=== PATIENT | female | born 1960 | race Two or more races ===

== ENCOUNTER 2025-02-18 15:30 | Outpatient (AMB) | payer OTHER, SELFPAY ==
--- NOTE | 2025-02-18 15:40 | A.OFFVIS_ITS ---
Intake Visit Reasons: 6 months migranes Accompanied by: Family/Other Allergies aspirin (ASPIRIN) Allergy (Unknown, Unverified 02/18/25 15:55) KIDNEY DISEASE ibuprofen (From MOTRIN) Allergy (Unknown, Unverified 02/18/25 15:55) KIDNEY DISEASE Medication List - Last Reconciled 02/18/25 by Clemencia Espinal CNP famotidine 20 mg PO BID PRN insulin glargine (Lantus Solostar U-100 Insulin) units subcut metformin ER 1,000 mg PO DAILY metoclopramide HCl 5 mg PO QID nortriptyline 100 mg PO BEDTIME ondansetron HCl 4 mg PO Q8H PRN simvastatin 40 mg PO BEDTIME topiramate 50 mg PO DAILY HPI Comments Details: 64-year-old woman with DM, GERD, hyperemesis syndrome treated with nortriptyline, and migraine headaches. She was doing okay. Headaches were about the same. She had few occasional headaches with light sensitivity. Sleep was still not so good. She was having some more tremors to hands, and occasionally to head and legs which were bothersome. No difficulty eating, drinking, or swallowing. [facility] Medical History (Updated 02/18/25 @ 15:49 by Clemencia Espinal CNP) Familial tremor Migraine Review of Systems Const Denies chills, Denies daytime sleepiness, Reports difficulty sleeping, Denies fatigue, Denies fever(s), Denies frequent falls, Reports headache(s), Denies increased appetite, Denies poor appetite, Denies snoring, Denies weakness, Denies weight gain and Denies weight loss Eyes Denies loss of vision ENT Denies vertigo, Denies dizziness and Reports headache(s) Card Denies chest pain at rest, Denies chest pain with activity, Denies syncope, Denies leg edema and Denies palpitations Resp Denies snoring GI Denies constipation, Denies heartburn, Denies diarrhea and Denies nausea Denies urinary frequency, Denies urinary incontinence and Denies urinary urgency Musc Denies abnormal gait, Denies numbness and Denies tingling Skin/Breast Denies dry skin and Denies rash Neuro Denies abnormal gait, Denies vertigo, Denies dizziness, Denies syncope, Denies frequent falls, Reports headache(s), Denies lack of coordination, Denies loss of vision, Denies memory loss, Denies numbness, Denies restless legs, Denies seizure-like activity, Denies tingling, Denies paresthesias, Reports tremor(s) and Denies weakness Psych Denies anxiety, Denies depression, Denies auditory hallucinations, Denies memory loss, Denies visual hallucinations and Denies suicidal ideation Endo Denies fatigue and Denies palpitations Physical Exam Const Other: General Appearance:? normal, in no acute distress. Skin:? no rashes, no significant birthmarks. Heart:? S1, S2 normal, no murmurs. Lungs:? clear anteriorly and posteriorly. Extremities:? no edema. Psych:? alert, oriented, cognitive function intact, cooperative with exam. Neuro Other: Mental Status:?Normal attention, orientation, memory and affect.? Cranial Nerves:?Pupils are equal, round and reactive to light. External occular muscles are intact. Visual de guzman are full. Face is symmetrical. Facial sensations are normal. Tongue is midline. Palate elevates symmetrically. Shoulder shrugging is normal. Hearing to bedside conversation is normal. Motor Examination:?DTRs absent. Sensory Exam:?....? Coordination:?No ataxia,?no titubation.? Gait Exam: Within normal limits. Cerebellar Signs:?[id number] with tremor. Extrapyramidal System:?No tremor, rigidity with normal facial expressions.? Pronator Drift:?Not present.? Involuntary Movements:?Moderate bilateral hand postural tremor. Mild head tremor. Speech:?Normal.? Results Reviewed Results Reviewed: CT brain WO at [place] 05/2022: Mild MVD Assessment & Plan Assessment & Plan (1) Chronic migraine w/o aura w/o status migrainosus, not intractable: Code(s): G43.709 - Chronic migraine without aura, not intractable, without status migrainosus Category: Medical Plan: Continue topiramate 50mg 1 tablet daily. (2) Migraine without aura: Code(s): G43.009 - Migraine without aura, not intractable, without status migrainosus Category: Medical Qualifiers: Status migrainosus presence: without status migrainosus Intractability: not intractable Qualified Code(s): G43.009 - Migraine without aura, not intractable, without status migrainosus (3) Familial tremor: Code(s): G25.0 - Essential tremor Category: Medical Plan: She was interested in trying medication. Start propranolol 10mg 1 tablet daily x1 week, then 1 tablet twice a day, use/side effects reviewed. Follow up in 2 months or sooner as needed. Plan Meds tried: verapamil Medications: New propranolol 10 mg orally 1 tablet daily x1 week then 1 tablet twice a day; 60 tabs 2RF 30 days topiramate 50 mg PO DAILY 90 tabs 1RF 90 days Coding Level of Care Code Est Pt Level 4 (84856) Diagnoses Chronic migraine w/o aura w/o status migrainosus, not intractable G43.709 Migraine without aura and without status migrainosus, not intractable G43.009 Status migrainosus presence: without status migrainosus Intractability: not intractable Familial tremor G25.0
--- OUTSIDE RECORDS SUMMARY | 2025-02-18 22:15 | XMS_ITS ---
Author Name [facility] Organization Unknown Care Team Organization Name Specialty Phone Email Start Date End Da te [facility] 01/18/2022
--- OUTSIDE RECORDS SUMMARY | 2025-02-18 22:15 | XMS_ITS | Patient Health Record ---
[facility] Address [address] [place] [address] Care Team Providers Care Associate Professor Of Literacy Name Role Phone Noreen Dunlap M.D. Primary Care Provider Un available Casey Felder Jr Unavailable [phone] Allergies Allergen (clinical drug ingredient) Drug/Non Drug Allergy documented on EMR Reaction Allergy Type Onset Date Status IV Contrast (uncoded) Unknown Allergy Active aspirin Aspirin Unknown Drug Allergy Active ibuprofen Ibuprofen Unknown Drug Allergy Active Reason For Referral No Information Medications Medication SIG (Take, Route, Frequency, Duration) Notes Start Date End Date Status Promethazine HCl 25mg Active Clobetasol 17 Propionate 5% Active Lidocaine 5% Active Omeprazole 20mg Acti ve Atenolol 25mg Active Simvastatin 40mg Act akbar Ranitidine HCl 300mg Active Fluoxetine 10mg Acti ve tiZANidine HCl 2mg A ctive Librax Active Problems Problem Type SNOMED Code ICD Code Onset Dates Problem Status W/U Status Risk Notes Problem Nausea and vomiting (52427845) Nausea with vomiting (787.01) Active confirmed Plan Of Treatment No Information Insurance Providers Payer Name Payer Address Payer Phone Subscriber Number Group Number Insured Name Patient Relationship to Insured Coverage Start Date Coverage End Date [employer]ICA[employer] OF [employer] [facility] [facility] [address] [place] [phone] [id number] LEANDRA MENDOZA Self - patient is the insured
--- OUTSIDE RECORDS SUMMARY | 2025-02-18 22:16 | XMS_ITS | Clinical Summary ---
Author Organization 175 [facility] Address [address] [place] [address] Phone Care Team Providers Care General Warehouse Worker Name Role Phone Tiffany Grant MD Primary Care Provider [phone] Allergies Active Allergy Reactions Criticality Noted Date Comments Aspirin Rash 11/07/2013 Has one kidney Ibuprofen 11/07/2013 Has one kidney Medications secukinumab (Cosentyx Pen, 2 Pens,) 150 mg/mL pen injector Inject 2 mL (300 mg total) under the skin. 12/24/19 20 Active topiramate (TOPAMAX) 50 mg tablet Take 1 tablet (50 mg total) by mouth 2 (two) times a day. 02/29/20 23 Active diclofenac (VOLTAREN) 1 % topical gel Apply 4 g topically 2 (two) times a day. 10/25/19 24 Active flash glucose sensor (FreeStyle Emely 2 Sensor) kit Change sensor every 14 days. Box = Kit = EA 2 each 01/29/20 24 Active pantoprazole (PROTONIX) 40 mg EC tablet Take 1 tablet (40 mg total) by mouth 2 (two) times a day. Before meals. Take on an empty stomach. Wait 30 mins to eat 180 each 1 09/10/19 25 025 Active metFORMIN XR (GLUCOPHAGE-XR) 500 mg 24 hr tabletIndication s:Type 2 diabetes mellitus with other diabetic kidney complication (CMS/HCC V24, CMS/HCC V28) Do not crush, chew, or split.TAKE 2 TABLETS ONCE DAILY WITH FOOD 180 tablet 1 10/16/19 25 Active blood-glucose sensor (FreeStyle Emely 3 Plus Sensor) deviceIndication s:Type 2 diabetes mellitus with other diabetic kidney complication ([facility] V24, [facility] V28) Change sensor every 15 days 2 each 10/16/19 25 Active blood-glucose,re ceiver,cont (FreeStyle Emely 3 [place]) miscIndications: Type 2 diabetes mellitus with other diabetic kidney complication ([facility] V24, [facility] V28) Use daily to check bs 1 each 10/16/19 25 Active Felecia 2nd Gen Pen Needle 32 gauge x /32 needleIndication s:Type 2 diabetes mellitus with other diabetic kidney complication ([facility] V24, [facility] V28) USE 4 TIMES DAILY WITH INSULIN PEN STRENGTH: 32G X 4 MM 200 each 5 12/18/19 25 Active simvastatin (ZOCOR) 40 mg tablet Take 1 tablet (40 mg total) by mouth at bedtime. 90 tablet 1 12/19/19 25 Active Lantus Solostar U-100 Insulin 100 unit/mL (3 mL) injection penIndications:T ype 2 diabetes mellitus with stage 3 chronic kidney disease, with long-term current use of insulin, unspecified whether stage 3a or 3b CKD ([facility] V24, [facility] V28) INJECT 10 UNITS INTO THE SKIN in the morning 15 mL 3 01/09/20 25 Active insulin lispro (HumaLOG KwikPen) 100 unit/mL injection penIndications:T ype 2 diabetes mellitus with stage 3 chronic kidney disease, with long-term current use of insulin, unspecified whether stage 3a or 3b CKD ([facility] V24, [facility] V28) INJECT 4 UNITS 2 TIMES DAILY. (BEFORE MEALS). 45 mL 5 01/09/20 25 Active blood sugar diagnostic (FreeStyle Lite Strips) test strip USE TO TEST BLOOD SUGAR THREE TIMES DAILY 100 each 01/09/20 25 Active lancets lancets CHECK BLOOD SUGAR 3 TIMES A DAY OR DIRECTED. Freestyle lite 100 each 01/10/20 25 Active nortriptyline (PAMELOR) 50 mg capsule Take 2 capsules (100 mg total) by mouth at bedtime. 180 capsule 01/28/20 25 Active metoclopramide (REGLAN) 5 mg tablet Take 1 tablet (5 mg total) by mouth 4 (four) times a day. 360 each 3 02/04/20 25 026 Active ondansetron (ZOFRAN) 4 mg tablet TOME 1 TABLETA POR VIA ORAL CADA 8 HORAS CUANDO SEA NECESARIO PARA LAS NAUSEAS Y VOMITOS FOR UP TO 14 DAYS 42 tablet 02/04/20 Active nortriptyline (PAMELOR) 50 mg capsule Take 2 capsules (100 mg total) by mouth at bedtime. 180 capsule 10/22/19 25 025 Discontinued metoclopramide (REGLAN) 5 mg tablet TAKE 1 TABLET BY MOUTH 4 TIMES A DAY 120 tablet 12/10/19 25 025 Discontinued ondansetron (ZOFRAN) 4 mg tablet Take 1 tablet (4 mg total) by mouth every 8 (eight) hours if needed for nausea or vomiting for up to 14 days. 42 each 12/17/19 025 Discontinued Active Problems Problem Noted Date Diagnosed Date Type 2 diabetes mellitus with renal manifestatio ns 01/10/2024 02/08/2021 History of colon polyps 01/10/2024 Overview (01/10/2024): Small tubular adenoma 01/11/13 Bingham's esophagus 04/28/2021 Overview (03/21/2024): Short segment of Bingham's esophagus without dysplasia seen at upper endoscopy on 04/21/2021. Recommend repeat EGD in 5 years. 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 Hyperlipidemia 05/11/2017 Migraine 05/11/2017 Osteoarthritis of foot 05/11/2017 Overview (03/21/2024): R - foot Vitamin D deficiency 05/11/2017 Diverticulosis of colon 04/20/2017 Overview (03/21/2024): Seen at colonoscopy 04/13/2017 HH (hiatus hernia) 04/20/2017 Overview (03/21/2024): Seen at upper endoscopy 04/13/2017 Psoriasis 04/20/2017 Overview (03/21/2024): Humira -~ 2008 - 2016 Cosentyx since 2016 Cyclic vomiting syndrome 02/22/2017 Gastroesophageal reflux disease 02/22/2017 Anxiety 11/07/2013 Depression 11/07/2013 Overview (03/21/2024): F/u [facility] psych Renal calculus or stone 11/07/2013 Family history of uterine cancer Overview (03/21/2024): Pt lin negative Resolved Problems Problem Noted Date Diagnosed Date Resolved Date PRICE (acute kidney injury) 05/11/2024 Encounters Date Type Department Care Team Description 01/08/2025 3:45 PM EDT Office Visit Endocrinology [address] [phone] Vianey Davis PA Type 2 diabetes mellitus with stage 3 chronic kidney disease, with long-term current use of insulin, unspecified whether stage 3a or 3b CKD (CMS/HCC V24, CMS/HCC V28) (Primary Dx); Other hyperlipidemia; Microalbuminuria 01/07/2025 Telephone Pulmonology - [address] [place] [address] Veronique Allen MA 01/07/2025 Results Follow-Up Pulmonology - [place] [facility] [address] [place] [phone] Kriss Alfonso MD 01/02/2025 3:45 PM EDT Office Visit Pulmonology [facility] [address] [facility] [address] [place] [phone] Kriss Alfonso MD WILLIE (obstructive sleep apnea) (Primary Dx) 12/11/2024 Results Follow-Up Pulmonology [facility] [address] [facility] [address] [place] [phone] Kriss Alfonso MD from Last 3 Months Immunizations Immunization Administration Dates Next Due Influenza Quadravalent, MDCK , 0.5ml, preservative free (Flucelvax) 6mo and older 03/20/2023,11/18/2021,02/08/2021 Influenza Quadravalent, MDCK , 0.5ml, with preservative (Flucelvax) 6mo and older 12/22/2017 Influenza trivalent, MDCK, 0 .5mL, preservative free (Flucelvax) 6mo and older 03/25/2024 Influenza trivalent, with pr eservative (Fluzone; Afluria) 6mo and older 12/30/2019,12/15/2016,01/01/2014 Pfizer (ages 12 & older) Bivalent, COVID-19 06/2021 Pneumococcal conjugate 13 va lent (Prevnar 13, PCV13) 2mo and older 02/06/2013 Pneumococcal conjugate 20 va lent (Prevnar 20, PCV 20) 2mo and older 09/24/2024 Pneumococcal polysaccharide 23 valent (Pneumovax 23) 2yo and older 04/20/2017 Tdap Tetanus diptheria acell ular pertussis (Boostrix; Adacel) 7yo and older 05/22/2015 Zoster Live 09/29/2021 Zoster recombinant (Shingrix ) 19yo and older 09/29/2021,02/22/2020 Surgical History Surgery Date Site/Laterality Comments OVARIAN CYST REMOVAL Right CHOLECYSTECTOMY 2010 APPENDECTOMY 2002 ESOPHAGOGASTRODUODENOSCOPY 04/13/2017 hiatus hernia (small); normal duodenal biopsies COLONOSCOPY 04/13/2017 tics; Normal random colonnic biopsies; repeat in 5 yrs OTHER SURGICAL HISTORY 06/21/2011 Right Parotid Mass biopsy - benign COLONOSCOPY 01/11/2013 MG - benign adenoma; repeat colonoscopy in 3 years. ESOPHAGOGASTRODUODENOSCOPY 01/11/2013 MG - normal, duodenal bx. COLONOSCOPY 09/05/2019 negative; random colonic bx negative ESOPHAGOGASTRODUODENOSCOPY 04/21/2021 Short segment of Bingham's esophagus without dysplasia seen. Recommend repeat EGD in 5 years. SCREENING MAMMOGRAM 06/05/2023 Bilateral Medical History Medical History Date Comments Cyclic vomiting syndrome 02/22/2017 Gastroesophageal reflux disease 02/22/2017 Hx of colonic polyp 02/22/2017 Hyperlipidemia 05/11/2017 Absence of kidney 05/11/2017 : Right Osteoarthritis 05/11/2017 shoulder, foot Migraine 05/11/2017 Vitamin D deficiency 05/11/2017 Psoriasis 04/20/2017 Kidney stones 11/07/2013 Hypertension 11/07/2013 HH (hiatus hernia) 04/20/2017 Seen at upper endoscopy 04/13/2017 Diverticulosis of colon 04/20/2017 Seen at colonoscopy 04/13/2017 Depression 11/07/2013 Anxiety 11/07/2013 [facility] Irritable bowel syndrome with diarrhea 9 Family history of uterine cancer 02/17/2020 Pt lin negative Microalbuminuria 10/07/2020 Bingham's esophagus 04/28/2021 : Short segm ent of Bingham's esophagus without dysplasia seen at upper endoscopy on 04/21/2021. Recommend repeat EGD in 5 years. Type 2 diabetes mellitus wit h renal manifestations (CMS/HCC V24, CMS/HCC V28) 01/10/2024 Family History Medical History Relation Name Comments Arthritis Brother Other: prediabetes Daughter Heart attack Father Breast cancer Mother 72 HTN, colon aniceto yps, arthritis Uterine cancer Mother's side diagnosed wi th CA 20-30, 3 nieces Uterine cancer Sister diagnosed at 40s Relation Name Status Comments Brother Alive Daughter Alive Father Mother 72 Alive Mother's side Alive Sister Alive Social History Tobacco Use Types Packs/Day Years Used Date Smoking Tobacco: Never Smokeless Tobacco: Never Tobacco Cessation:Counseling Given: Not Answered Alcohol Use Standard Drinks/Week Comments No 0 (1 standard drink = 0.6 oz pur e alcohol) Housing Instability Answer Date Recorde d Are you worried that in the next 2 months you may not have stable housing? No 09/23/2024 Food Access & Nutrition Answer Date Rec orded Do you have access to a vari ety of food including fruits and vegetables? Yes 09/23/2024 Access to Healthcare Answer Date Record ed Within the last 3 months, ho w many times did you visit the emergency department for your medical care? 0 09/23/2024 Health Literacy Answer Date Recorded How often do you need to hav e someone help you when you read instructions, pamphlets, or other written material from your doctor or pharmacy? Never 09/23/2024 Caregiver: How often do you need to have someone help you when you read instructions, pamphlets, or other written material from your doctor or pharmacy? Not on file 09/23/2024 Financial Risk Answer Date Recorded How hard is it for you to pa y for the very basics like food, housing, medical care, and air conditioning / heating? Somewhat hard 09/23/2024 Transportation Answer Date Recorded Has the lack of transportati on kept you from meetings, work, or from getting things needed for daily living? No Has the lack of transportati on kept you from medical appointments or from getting medications? No 09/23/2024 Social Isolation Answer Date Recorded How often do you feel lonely or isolated from th ose around you? Never 09/23/2024 Food Risk Answer Date Recorded Within the past 12 months we worried whether our food would run out before we got money to buy more. Never true 09/23/2024 Within the past 12 months th e food we bought just didn't last and we didn't have money to get more. Never true 09/23/2024 Dependent Care Answer Date Recorded Do you need help finding or paying for care for your loved ones. For example, early childhood specialist or elderly care for an older adult? No 09/23/2024 Education Answer Date Recorded Do you think completing more education or training, like finishing a GED, going to college, or learning a trade, would be helpful for you? N/A 09/23/2024 Employment and Income Answer Date Recor ded During the last four weeks, have you been actively looking for work? No 09/23/2024 Living Situation Answer Date Recorded What is your living situation? Unrecognized valu e 09/23/2024 Interpersonal Safety Answer Date Record ed Physical Abuse Unrecognized value 10/28/2024 Verbal Abuse Unrecognized value 10/28/2024 Comments No Sex and Gender Information Value Date Recorded Sex Assigned at Female 05/11/2024 3:19 PM EST Legal Sex Female 2:17 AM EST Gender Identity Female 05/11/2024 3:19 PM EST Sexual Orientation Straight 05/11/2024 3: 19 PM EST Obstetrics History Para Term AB IAB SAB Ectopic Multiple Livin g Live Births 1 1 1 1 Date Outcome GA Total Labor Labor/2nd/3rd Weight Sex Type Anes PTL Norma A1 A5 Name Clin Term Last Filed Vital Signs Vital Sign Reading Time Taken Comments Blood Pressure 100/75 01/08/2025 3:50 PM EDT Pulse 96 01/08/2025 3:50 PM EDT Temperature 36.3 C (97.3 F) 01/08/2025 3:50 PM EDT Respiratory Rate 16 01/02/2025 3:50 PM EDT Oxygen Saturation 98% 01/02/2025 3:50 PM EDT Inhaled Oxygen Concentration - - Weight 75.6 kg (166 lb 9.6 oz) 01/08/2025 3:50 P M EDT Height 162.6 cm (5' 4 ) 01/08/2025 3:50 PM EDT Body Mass Index 28.6 01/08/2025 3:50 PM EDT Plan of Treatment Upcoming Encounters Date Type Department Care Team (Late st Contact Info) Description 03/24/2025 4:00 PM EST Office Visit Pulmonology - [place] [facility] [address] [place] [phone] Kriss Alfonso MD [address] [place] [phone] 03/25/2025 3:20 PM EST Office Visit Gastroenterology - [facility] [address] [facility] [address] [place] [phone] Nayla Concepcion NP [address] [facility] [address] [place] [address] 03/26/2025 4:00 PM EST Office Visit Adult Medicine [address], [place] [phone] Tiffany Grant MD [address] [place] [address] 05/08/2025 2:30 PM EST Office Visit Endocrinology - [address] [phone] Patricia Rao PA [address] [place], [place] 06/23/2025 3:30 PM EDT Office Visit Orthopedic Surgery - [place] [address] [phone] Earl Guzman DPM [address] [phone] 07/07/2025 3:00 PM EDT Appointment Radiology Department - [address] [phone] Health Maintenance Due Date Last Done Comments RSV Immunization Adult Patients (1 - Risk 50-74 years 1-dose series) 2010 Zoster Vaccines (2 of 2) 11/24/2021 022, 09/29/2021, 02/22/2020 HIV Screening 02/19/2022 COVID-19 Vaccine ( season) 2024 02/13/2022, 10/09/2021, 02/05/2021, Additional history exists Diabetes: Annual Foot Exam 12/03/2024 12/04/2023, Diabetes: Annual Retina Eye Exam 04/16/2025 04/16/2024, 09/21/2022 Diabetes: Blood Sugar Control Test (HGBA1C) 05/07/2025 11/04/2024, 09/24/2024, 04/08/2024, Additional history exists DTaP,Tdap,and Td Vaccines (2 - Td or Tdap) 05/21/2025 05/22/2015 Social Influencers of Health Screening 09/23/2025 09/23/2024 Diabetes: Annual Urine Albumin-Creatinine Ratio (uACR) 11/04/2025 11/04/2024, 04/08/2024, 08/21/2023, Additional history exists Diabetes: Annual GFR (Glomerular Filtration Rate) 11/04/2025 11/04/2024, 05/28/2024, 05/13/2024, Additional history exists Hypertension/CHF/CAD Annual BMP Blood Test 11/04/2025 11/04/2024, 05/28/2024, 05/13/2024, Additional history exists Breast Cancer Screening 06/28/2026 06/29/19, 06/05/2023, 06/03/2022, Additional history exists Cervical Cancer Screening: HPV 09/08/2027 09/07/2022 Cholesterol Screening (Lipid Panel) 04/08/2029 04/08/2024, 08/21/2023, 08/21/2023, Additional history exists Colorectal Cancer Screening: Colonoscopy 10/28/2029 10/28/2024, 09/05/2019, 09/05/2019 Hepatitis C Screening Completed 09/18/2017, 018 Depression Screening Completed 09/23/2024, 10/24/19 24 Pneumococcal Vaccine: 50+ Years Completed 09/24/2024, 04/20/2017, 02/06/2013 Influenza Vaccine Completed 11/20/2024, , 03/20/2023, Additional history exists HIB Vaccines Aged Out No longer eligi ble based on patient's age to complete this topic HPV Vaccines Aged Out No longer eligi ble based on patient's age to complete this topic Hepatitis A Vaccines Aged Out No long er eligible based on patient's age to complete this topic Hepatitis B Vaccines Aged Out No long er eligible based on patient's age to complete this topic IPV Vaccines Aged Out No longer eligi ble based on patient's age to complete this topic MMR Vaccines Aged Out No longer eligi ble based on patient's age to complete this topic Meningococcal ACWY Vaccine Aged Out N o longer eligible based on patient's age to complete this topic Meningococcal B Vaccine Aged Out No l onger eligible based on patient's age to complete this topic RSV Immunization Patients Under 20 months Aged Out No longer eligible based on patient's age to complete this topic Varicella Vaccines Aged Out No longer eligible based on patient's age to complete this topic Goals Goal Patient Goal Type Associated Problems Recent Progress Patient-Stated? Author STG's 6 visits General Yes Josse Eckert, PT Note: Pt will report LBP that does not extend beyond L buttock during ADL's and IADL's. Pt is Independent and compliant with initial HEP. (Met) Pt will perform correct technique for sup<->sit transfers w/ min VC's in 5/5 trials. (Met) Pt will demonstrate lumbar flexion to 60 degrees or better for dressing. LTG's 12 visits General Yes Josse Eckert, PT Note: Pt will report LBP that does not peripheralize during ADL's and IADL's. Pt will be Independent and compliant with final HEP. Pt will I demonstrate proper technique for sup<->sit transfers in 5/5 trials. Pt will demonstrate lumbar flexion of 65 degrees or better for ADL's. Procedures Procedure Name Priority Date/Time Associated Diagnosis Comments INTERFERON GAMMA INTERPRETATION Routine 01/06/2025 12:05 PM EDT Psoriasis vulgaris Polypharmacy INTERFERON GAMMA ANTIGEN 2 Routine 01/06/2025 12:05 PM EDT Psoriasis vulgaris Polypharmacy INTERFERON GAMMA ANTIGEN 1 Routine 01/06/2025 12:05 PM EDT Psoriasis vulgaris Polypharmacy INTERFERON GAMMA MITOGEN Routine 01/06/2025 12:05 PM EDT Psoriasis vulgaris Polypharmacy INTERFERON GAMMA NIL Routine 01/06/2025 12:05 PM EDT Psoriasis vulgaris Polypharmacy INTERFERON GAMMA FOR TB, QUALITATIVE Routine 01/06/2025 12:05 PM EDT Psoriasis vulgaris Polypharmacy THYROID STIMULATING HORMONE WITH REFLEX TO FREE T4 AND FREE T3 Routine 01/06/2025 12:05 PM EDT WILLIE (obstructive sleep apnea) HOME SLEEP TEST Routine 11/21/2024 10:09 AM EDT WILLIE on CPAP MICROALBUMIN CREATININE URINE RATIO Routine 11/04/2024 10:13 AM EDT Chronic kidney disease, stage II (mild) Acquired absence of kidney Vitamin D deficiency RENAL FUNCTION PANEL Routine 11/04/2024 10:13 AM EDT Chronic kidney disease, stage II (mild) Acquired absence of kidney Vitamin D deficiency HEMOGLOBIN A1C Routine 11/04/2024 10:13 AM EDT Type 2 diabetes mellitus with other diabetic kidney complication (CMS/HCC V24, CMS/HCC V28) COLONOSCOPY Routine 10/28/2024 9:24 AM EDT Delayed gastric emptying Bingham's esophagus without dysplasia History of adenomatous polyp of colon MG MAMMO DIGITAL SCREENING W JHOAN BILAT Routine 06/28/2024 3:20 PM EDT Encounter for screening mammogram for breast cancer LIPID PANEL WITH REFLEX TO DIRECT LDL Routine 04/08/2024 2:56 PM EST Other hyperlipidemia HM DEPRESSION SCREENING Routine 10/24/2023 HM HPV Routine 09/07/2022 HM HEPATITIS C SCREENING Routine 09/18/2017 from Last 3 Months or Most Recently Relevant to Health Maintenance Results * Interferon gamma interpretation (01/06/2025 12:05 PM EDT) Quantiferon Plus Interpretation Negative Negative LAB CHEMISTRY METHOD 01/07/2025 9:03 AM EDT [facility] Blood Venous blood specimen / Unknown Venipuncture / Unknown 01/06/2025 12:05 PM EDT 01/06/2025 12:05 PM EDT us Faizan Ba MD LAB BLOOD ORDERABLES Final Result [facility] [address] [place] [address], [place] [phone] * Interferon gamma antigen 2 (01/06/2025 12:05 PM EDT) Blood Venous blood specimen / Unknown Venipuncture / Unknown 01/06/2025 12:05 PM EDT 01/06/2025 12:05 PM EDT Faizan Ba MD LAB BLOOD ORDERABLES Final Result Performing Organization Address City/[facility]/ZIP Co de Phone Number [facility] [address] [place] [address], [place] [phone] * Interferon gamma antigen 1 (01/06/2025 12:05 PM EDT) Blood Venous blood specimen / Unknown Venipuncture / Unknown 01/06/2025 12:05 PM EDT 01/06/2025 12:05 PM EDT Faizan Ba MD LAB BLOOD ORDERABLES Final Result Performing Organization Address City/[facility]/ZIP Co de Phone Number [facility] [address] [place] [address], [place] [phone] * Interferon gamma mitogen (01/06/2025 12:05 PM EDT) Blood Venous blood specimen / Unknown Venipuncture / Unknown 01/06/2025 12:05 PM EDT 01/06/2025 12:05 PM EDT Faizan Ba MD LAB BLOOD ORDERABLES Final Result [facility] [address] [place] [address], [place] [phone] * Interferon gamma NIL (01/06/2025 12:05 PM EDT) Blood Venous blood specimen / Unknown Venipuncture / Unknown 01/06/2025 12:05 PM EDT 01/06/2025 12:05 PM EDT Faizan Ba MD LAB BLOOD ORDERABLES Final Result [facility] [address] [place] [address], [place] [phone] * Thyroid stimulating hormone with reflex to free t4 and free t3 (01/06/2025 12:05 PM EDT) TSH 1.10 0.40 - 4.00 mcIU/mL LAB CHEMISTRY METHOD 01/06/2025 6:11 PM EDT [facility] Blood Venous blood specimen / Unknown Venipuncture / Unknown 01/06/2025 12:05 PM EDT 01/06/2025 12:05 PM EDT Kriss Alfonso MD LAB BLOOD ORDERABLES Final Resul t [facility] [address] [place] [address], [place] [phone] * Home sleep test (11/21/2024 10:09 AM EDT) Kriss Alfonso MD SLEEP CENTER ORDERABLES Final Re sult * Microalbumin creatinine urine ratio (11/04/2024 10:13 AM EDT) Creatinine, Urine 150.0 mg/dL LAB CHEMISTRY METHOD 11/04/2024 1:10 PM EDT [facility] Microalb, Ur 13.2 0.0 - 29.0 mg/L LAB CHEMISTRY METHOD 11/04/2024 1:10 PM EDT [facility] Microalb/Creat Ratio 9 <30 mg/g creat LAB CHEMISTRY METHOD 11/04/2024 1:10 PM EDT [facility] Urine Urine specimen obtained by clean catch procedure / Unknown Non-blood Collection / Unknown 11/04/2024 10:13 AM EDT 11/04/2024 10:13 AM EDT Ronda Travis MD LAB URINE ORDERABLES Final Res ult Performing Organization Address City/[facility]/ZIP Co de Phone Number [facility] [address] [place] [address], [place] [phone] * (ABNORMAL) Hemoglobin A1c (11/04/2024 10:13 AM EDT) Pathologist [facility] Hemoglobin A1C 7.9(H) <6.5 % LAB CHEMISTRY METHOD 11/04/2024 9:56 PM EDT [facility] Mean Bld Glu Estim. 180 mg/dL LAB CHEMISTRY METHOD 11/04/2024 9:56 PM EDT [facility] Blood Venous blood specimen / Unknown Venipuncture / Unknown 11/04/2024 10:13 AM EDT 11/04/2024 10:13 AM EDT Vianey CUNHA LAB BLOOD ORDERABLES Final Result Performing Organization Address [facility]/ZIP Co de Phone Number [facility] [address] [place] [address], [place] [phone] * (ABNORMAL) Renal function panel (11/04/2024 10:13 AM EDT) [facility] Sodium 137 133 - 145 mmol/L LAB CHEMISTRY METHOD 11/04/2024 1:17 PM EDT [facility] Potassium 4.1 3.5 - 5.5 mmol/L LAB CHEMISTRY METHOD 11/04/2024 1:17 PM EDT [facility] Chloride 103 96 - 110 mmol/L LAB CHEMISTRY METHOD 11/04/2024 1:17 PM EDT [facility] CO2 25 21 - 32 mmol/L LAB CHEMISTRY METHOD 11/04/2024 1:17 PM EDT [facility] Anion Gap 9 3 - 11 LAB CHEMISTRY METHOD 11/04/2024 1:17 PM EDT [facility] Glucose 196(H) 70 - 100 mg/dL LAB CHEMISTRY METHOD 11/04/2024 1:17 PM EDT [facility] BUN 21 5 - 25 mg/dL LAB CHEMISTRY METHOD 11/04/2024 1:17 PM EDT [facility] Creatinine 0.90 0.50 - 1.10 mg/dL LAB CHEMISTRY METHOD 11/04/2024 1:17 PM EDT [facility] eGFR 72 >=60 mL/min/1. 73m2 LAB CHEMISTRY METHOD 11/04/2024 1:17 PM EDT [facility] Comment:Calculation based on the Chronic Kidney Disease Epidemiology Collaboration (CKD-EPI) equation refit without adjustment for race. BUN/Creatinine Ratio 23.3 LAB CHEMISTRY METHOD 11/04/2024 1:17 PM EDT [facility] Albumin 3.5 3.2 - 5.0 g/dL LAB CHEMISTRY METHOD 11/04/2024 1:17 PM EDT [facility] Calcium 9.6 8.5 - 10.5 mg/dL LAB CHEMISTRY METHOD 11/04/2024 1:17 PM EDT [facility] Phosphorus 3.8 2.5 - 4.5 mg/dL LAB CHEMISTRY METHOD 11/04/2024 1:17 PM EDT [facility] Blood Venous blood specimen / Unknown Venipuncture / Unknown 11/04/2024 10:13 AM EDT 11/04/2024 10:13 AM EDT us Ronda Travis MD LAB BLOOD ORDERABLES Final Res ult [facility] [address] [place] [address], * COLONOSCOPY Anesthesia - [facility]; [facility] ENDOSCOPY (10/28/2024 9:24 AM EDT) Anatomical Region Laterality Modality Other 10/28/2024 8:18 AM EDT Impressions 10/28/2024 9:17 AM EDT - Diverticulosis in the sigmoid colon. - One 5 mm polyp at the splenic flexure, removed with a cold snare. Resected and retrieved. - The examination was otherwise normal on direct and retroflexion views. Recommendation: - Await pathology results. - Repeat colonoscopy in 5 years for surveillance. Narrative 10/28/2024 9:17 AM EDT [facility] Patient Name: Monalisa Mendoza Procedure Date: 10/28/2024 8:18 AM Date of : 1960 Age: 63 Room: ROOM 14 Gender: Female Note Status: Finalized Attending MD: Chirag Finley MD, Procedure Date No Time: 10/28/2024 Procedure: Colonoscopy Indications: High risk colon cancer surveillance: Personal history of colonic polyps Providers: Chirag Finley MD Referring MD: Chirag Finley MD Medicines: Propofol per Anesthesia Complications: No immediate complications. Estimated Blood Loss: Estimated blood loss was minimal. Procedure: Pre-Anesthesia Assessment: - ASA Grade Assessment: III - A patient with severe systemic disease. After I obtained informed consent, the scope was passed under direct vision. Throughout the procedure, the patient's blood pressure, pulse, and oxygen saturations were monitored continuously.The Colonoscope was introduced through the anus and advanced to the cecum, identified by appendiceal orifice and ileocecal valve. The colonoscopy was performed without difficulty. The patient tolerated the procedure well. The quality of the bowel preparation was good. Findings: The perianal and digital rectal examinations were normal. Multiple diverticula were found in the sigmoid colon. A 5 mm polyp was found in the splenic flexure. The polyp was sessile. The polyp was removed with a cold snare. Resection and retrieval were complete. The exam was otherwise without abnormality on direct and retroflexion views. Procedure Code(s): --- Professional --- 59348, Colonoscopy, flexible; with removal of tumor(s), polyp(s), or other lesion(s) by snare technique Diagnosis Code(s): --- Professional --- Z86.010, Personal history of colonic polyps D12.3, Benign neoplasm of transverse colon (hepatic flexure or splenic flexure) K57.30, Diverticulosis of large intestine without perforation or abscess without bleeding CPT copyright 2020 [employer]. All rights reserved. The codes documented in this report are preliminary and upon mathematical scientist review may be revised to meet current compliance requirements. Chirag Finley MD 10/28/2024 9:17:26 AM This report has been signed electronically.Chirag Finley MD Number of Addenda: 0 Note Initiated On: 10/28/2024 8:18 AM Scope In: Scope Out: Endoscopy Department at [facility] - [address] [place] [id number] Procedure Note Chirag Finley MD - 10/28/2024 [facility] Patient Name: Monalisa Mendoza Procedure Date: 10/28/2024 8:18 AM Date of : 1960 Age: 63 Room: ROOM 14 Gender: Female Note Status: Finalized Attending MD: Chirag Finley MD, Procedure Date No Time: 10/28/2024 Procedure: Colonoscopy Indications: High risk colon cancer surveillance: Personalhistory of colonic polyps Providers: Chirag Finley MD Referring MD: Chirag Finley MD Medicines: Propofol per Anesthesia Complications: No immediate complications. Estimated Blood Loss: Estimated blood loss was minimal. Procedure: Pre-Anesthesia Assessment: - ASA Grade Assessment: III - A patient with severe systemic disease. After I obtained informed consent, the scope was passed under direct vision. Throughout theprocedure, the patient's blood pressure, pulse, and oxygen saturations were monitored continuously.The Colonoscope was introduced through the anus and advanced to the cecum, identified by appendiceal orifice and ileocecal valve. The colonoscopy was performed without difficulty. The patient tolerated the procedure well. The quality of the bowel preparation was good. Findings: The perianal and digital rectal examinations were normal. Multiple diverticula were found in the sigmoidcolon. A 5 mm polyp was found in the splenic flexure. The polyp was sessile. The polyp was removed with acold snare. Resection and retrieval were complete. The exam was otherwise without abnormality ondirect and retroflexion views. Procedure Code(s): --- Professional --- 95288, Colonoscopy, flexible; with removal of tumor(s), polyp(s), or other lesion(s) by snare technique Diagnosis Code(s): --- Professional --- Z86.010, Personal history of colonic polyps D12.3, Benign neoplasm of transverse colon (hepatic flexure or splenic flexure) K57.30, Diverticulosis of large intestine without perforation or abscess without bleeding CPT copyright 2020 [employer]. All rights reserved. The codes documented in this report are preliminary and upon mathematical scientist reviewmay be revised to meet current compliance requirements. Chirag Finely MD 10/28/2024 9:17:26 AM This report has been signed electronically.Chirag Finley MD Number of Addenda: 0 Note Initiated On: 10/28/2024 8:18 AM Scope In: Scope Out: Endoscopy Department at [facility] - [address] [place] [id number] IMPRESSION: - Diverticulosis in the sigmoid colon. - One 5 mm polyp at the splenic flexure, removedwith a cold snare. Resected and retrieved. - The examination was otherwise normal on directand retroflexion views. Recommendation: - Await pathology results. - Repeat colonoscopy in 5 years for surveillance. Chirag Finley MD GI~PROCEDURE ORDERABLES Fin al Result * [facility] Mammo Digital Screening w Jhoan bilat (06/28/2024 3:20 PM EDT) Anatomical Region Laterality Modality Breast Bilateral Mammography 06/28/2024 7:54 PM EDT Impressions 06/28/2024 7:57 PM EDT BILATERAL BREASTS: Negative, no evidence of malignancy. Normal interval follow- up is recommended in 12 months. BREAST DENSITY: B - There are scattered areas of fibroglandular density. BI-RADS CATEGORY: 1 - NEGATIVE RECOMMENDATION: Screening bilateral mammogram is recommended in 1 year. Mammo Location: [facility], [address] [place] [address], [id number], . -------- FINAL REPORT -------- Dictated By: Elena Pierce Dictated Date: 06/28/2024 19:54 ET Assigned Physician: Elena Pierce Reviewed and Electronically Signed By: Elena Pierce Signed Date: 06/28/2024 19:57 ET Workstation ID: [id number] Transcribed By: Self Edit Transcribed Date: 06/28/2024 19:54 ET Narrative 06/28/2024 7:57 PM EDT STUDY: Bilateral screening mammography with tomosynthesis and CAD TECHNIQUE: Bilateral full-field digital screening mammography is obtained and read in conjunction with computer-aided detection. Tomosynthesis as well as 2-D C view imaging were obtained. COMPARISON: Comparison made to multiple prior, most recent June 05, 2023, and most remote October 14, 2015. BILATERAL BREASTS: No significant masses, suspicious calcifications or other abnormalities are seen in either breast. Procedure Note Elena Pierce MD - 06/28/2024 STUDY: Bilateral screening mammography with tomosynthesis and CAD TECHNIQUE: Bilateral full-field digital screening mammography is obtainedand read in conjunction with computer-aided detection. Tomosynthesis aswell as 2-D C view imaging were obtained. COMPARISON: Comparison made to multiple prior, most recent June 05, 2023,and most remote October 14, 2015. BILATERAL BREASTS: No significant masses, suspicious calcifications orother abnormalities are seen in either breast. IMPRESSION: BILATERAL BREASTS: Negative, no evidence of malignancy. Normal intervalfollow-up is recommended in 12 months. BREAST DENSITY: B - There are scattered areas of fibroglandular density. BI-RADS CATEGORY: 1 - NEGATIVE RECOMMENDATION: Screening bilateral mammogram is recommended in 1 year. Mammo Location: [facility], [address] [place] [address], [id number], . -------- FINAL REPORT -------- Dictated By: Elena Pierce Dictated Date: 06/28/2024 19:54 ET Assigned Physician: Elena Pierce Reviewed and Electronically Signed By: Elena Pierce Signed Date: 06/28/2024 19:57 ET Workstation ID: [id number] Transcribed By: Self Edit Transcribed Date: 06/28/2024 19:54 ET us Tiffany Grant MD IMG BI PROCEDURES Final Result * (ABNORMAL) Lipid panel with reflex to direct LDL (04/08/2024 2:56 PM EST) Cholesterol 148 0 - 200 mg/dL LAB CHEMISTRY METHOD 04/08/2024 5:17 PM EST [facility] Triglycerides 274(H) 0 - 150 mg/dL LAB CHEMISTRY METHOD 04/08/2024 5:17 PM EST [facility] HDL 55 >=40 mg/dL LAB CHEMISTRY METHOD 04/08/2024 5:17 PM EST [facility] LDL Calculated 38 0 - 100 mg/dL LAB CHEMISTRY METHOD 04/08/2024 5:17 PM EST [facility] VLDL Cholesterol Navjot 54.8 mg/dL LAB CHEMISTRY METHOD 04/08/2024 5:17 PM EST [facility] Non HDL Chol. (LDL+VLDL) 93 <145 mg/dL LAB CHEMISTRY METHOD 04/08/2024 5:17 PM EST [facility] Chol/HDL Ratio 2.7 0.0 - 4.4 LAB CHEMISTRY METHOD 04/08/2024 5:17 PM EST [facility] Blood Venous blood specimen / Unknown Venipuncture / Unknown 04/08/2024 2:56 PM EST 04/08/2024 2:56 PM EST us Tiffany Grant MD LAB BLOOD ORDERABLES Final Resul t [facility] [address] [place] [address], [place] [phone] * Depression Screening (10/24/2023) Depression Screening abstracted Historical Provider HEALTH MAINTENANCE Final Result * Cervical Cancer Screening: HPV (09/07/2022) [facility] Cervical Cancer Screening: HPV negative, abstracted Historical Provider HEALTH MAINTENANCE Final Result * Hepatitis C Screening (09/18/2017) [facility] Hepatitis C Screening abstracted us Historical Provider HEALTH MAINTENANCE Final Result from Last 3 Months or Most Recently Relevant to Health Maintenance Insurance [facility] [employer] Advance Directives Documents on File Type Date Recorded Patient Pediatric Nurse Practitioner Expl anation Advance Directives and Living Will 05/13/2024 3:45 PM Savanah Mendoza Health Care Proxy * Full Code - Default (Latest Code Status on File) Date Activated Date Inactivated Comments 05/11/2024 6:46 PM 05/13/2024 5:40 PM This is order is used when code status has not been discussed with the patient, or code status is otherwise unknown/unconfirmed To update the patient's code status, place a code status order. Do not modify or discontinue any currently active code status orders. Healthcare Agents on File Name Relationship Healthcare Agent Relationshi p Communication Savanah Mendoza Daughter Health Care Agent Care Teams General Warehouse Worker Relationship Specialty Start Date End Date Tiffany Grant MD [address] [place] [id number] PCP - General Internal Medicine 09/12/19
== END 2025-02-18 15:59 | disposition home or self-care (01) ==
LOC: HO.HSM 15:30
PROVIDERS: PCP Internal Medicine; Visit Provider Registered Nurse
DX: G43.709 Chronic migraine without aura, not intractable, without status migrainosus (principal); G25.0 Essential tremor
CPT/HCPCS: 99214

== ENCOUNTER → 2025-02-18 15:30 | Outpatient (BNVA) | payer OTHER, SELFPAY | PROVIDERS: PCP Internal Medicine; Visit Provider Registered Nurse | DX: G43.709 Chronic migraine without aura, not intractable, without status migrainosus (principal); G25.0 Essential tremor; Z79.899 Other long term (current) drug therapy | CPT/HCPCS: 99212 ==